=== PATIENT | male | born 1960 | race Caucasian/White ===

== ENCOUNTER 2016-11-16 09:17 | Day surgery (SDC) | payer OTHER ==
[2016-11-15 15:26] VITALS: BMI 21.2
[2016-11-16 11:41] VITALS: TEMP 97.9
[2016-11-16 11:43] VITALS: BP 126/75
--- NOTE | 2016-11-16 13:59 | RAD ---
Please see accompanying C-spine post myelographic CT dictation. Radiation dosimetry is 1.3 minutes of fluoroscopy and AK 317 mGy. POS: [facility]
--- NOTE | 2016-11-16 14:07 | CT ---
CT MYELOGRAM CERVICAL SPINE: HISTORY: Cervical spondylosis without myelopathy, M47.812. FINDINGS: Informed consent was obtained from the patient. The lumbar spine special delivery messenger were obtained. L2-3 area w as selected. The overlying skin was prepped and draped in the usual sterile manner. A 1% Lidocaine solution was used to anesthetize the overlying soft tissues. A 22 gauge spinal needle was placed u nder fluoroscopic guidance into the subarachnoid space at L2-3 without touching the dorsal column st imulator leads. A total of 10 mL of Isovue-M 300 was injected into the subarachnoid space. The pat ient was placed in a prone Trendellenberg position and contrast was localized into the cervical spin e. Spot images confirmed. In addition, postmyelographic CT was also obtained. CT images cervical spine demonstrate no evidence of osseous lesions. No evidence of disk herniation , spinal stenosis, or neural foraminal narrowing is seen. The spinal cord is not compressed. No si gnificant evidence of facet degenerative changes seen. No evidence of cervical spine abnormalities noted. IMPRESSION: Normal CT cervical spine myelogram with no evidence of acute or chronic changes or abnormalities. POS: [facility]
== END 2016-11-16 12:15 | disposition home or self-care (01) ==
LOC: RAD 09:17
PROVIDERS: ATTEND Radiology Neuroradiology
PROC: B01B1ZZ Fluoroscopy of Spinal Cord using Low Osmolar Contrast (ICD-10-PCS; principal; 2016-11-16)
DX: M47.812 Spondylosis without myelopathy or radiculopathy, cervical region (principal); I10 Essential (primary) hypertension; Z79.52 Long term (current) use of systemic steroids; Z79.899 Other long term (current) drug therapy; Z88.7 Allergy status to serum and vaccine; Z98.1 Arthrodesis status; Z96.9 Presence of functional implant, unspecified; Z96.7 Presence of other bone and tendon implants; Z86.14 Personal history of Methicillin resistant Staphylococcus aureus infection
CPT/HCPCS: 62302; 72126